=== PATIENT | female | born 1950 | race Caucasian/White ===

== ENCOUNTER → 2016-08-17 | Outpatient (CLI) | payer MEDICARE, OTHER ==
[~2016-08-17] MED LIST: ACTONEL35 MG PO; AMLO5TAB PO; CALCIUM 600-D1 TAB PO; FIBER CHOICE1 CTB PO; FOLIC ACID 1MG T1 MG PO; LIPITOR20 MG PO; METHOTREXATE 22.5 MG PO; MULTIVITAMIN1 TA1 PO; NORCO 325 MG-51 TAB PO; PHENERGAN 25MG.25 M1 PO; PROBIOTIC FORMU1 CA1 PO; VICODIN1 TAB PO
--- NOTE | 2016-08-17 12:24 | RADIOLOGY REPORT PS360 ---
BONE DENSITOMETRY(HIP:LT SPINE HISTORY: OSTEOPENIA ORDERING PHYSICIAN: Kuldip Adame MD PATIENT AGE: 66 years COMPARISON: None FINDINGS: The BMD measured at the right femoral neck is 0.866 g/cm squared with a T score of -1.2. This is considered Osteopenic according to the World Health Organization criteria. Fracture risk is Moderate. Treatment is advised. IMPRESSION: Osteopenia. Bone density is essentially unchanged compared to 08/15/2015 in the hips and has increased by 5.4% in the spine. Recommend follow-up exam July 2018
--- NOTE | 2016-08-20 13:33 | RADIOLOGY REPORT PS360 ---
DIG MAMM-SCREEN UNI-LT W/CAD CAD Screening COMPARISON: Digital left mammogram 08/01/2014 and 08/15/2015 INDICATION: There has been a there is a history of breast cancer in patient's mother diagnosed in her 80s. Previous right mastectomy. TECHNIQUE: Standard CC and MLO images were obtained. R2 CAD reviewed. FINDINGS: Moderate heterogenic densities are seen in the central portion of the breast basely unchanged from the previous exams. There are few benign-appearing calcifications noted. There is no suspicious lesion and no suspicious microcalcifications. IMPRESSION: Stable exam no suspicious lesion seen recommend yearly follow-up BI-RADS CATEGORY: 2_Benign RECOMMENDED FOLLOWUP: 12M 12 MONTH FOLLOW-UP (A letter has been sent to the patient regarding results of the study.)
== END ==
LOC: RAD 10:09
DX: Z12.31 Encounter for screening mammogram for malignant neoplasm of breast (principal); Z85.3 Personal history of malignant neoplasm of breast; M85.89 Other specified disorders of bone density and structure, multiple sites; Z13.820 Encounter for screening for osteoporosis
CPT/HCPCS: G0202-LT-52

== ENCOUNTER → 2016-11-20 | Outpatient (CLI) | payer MEDICARE, OTHER ==
--- NOTE | 2016-11-22 19:57 | RADIOLOGY REPORT PS360 ---
PROCEDURE: 2-D M-mode and color Doppler study INDICATIONS FOR THE TEST: Chest pain COPD Heart Murmur Tobacco Smoking Palpitations Fatigue+ Syncope Edema+ Hypertension+Diabetes Mellitus Rheumatic Fever SOB MIRZA+Obesity Hyperlipidemia Family History HD+ Additional History PATIENT INFORMATION HEIGHT: 65 WEIGHT:125 GENDER: Female B/P:142/81 2-D/M-MODE INTERPRETATION: 2-D MEASUREMENTS OBSERVED VALUES IN CMS Right Ventricular Dimension (RVDd) 1.2 Interventricular Septum (Thickness)(IVsd) 1.3 Left Ventricular Internal Dimensions(LVIDd) 3.8 Left Ventricular Posterior Wall (Thickness)(LVPWd) 0.8 Aortic Root 2.7 Aortic Cusp Separation 1.3 Left Atrial Dimensions (LAD) 2.9 2D 1. Left atrium is qualitatively moderately enlarged, left ventricle is normal size, there is mild concentric left ventricular hypertrophy present, visually estimated ejection fraction of 55% with no obvious regional wall motion abnormality. 2. The right atrium and right ventricle are normal size and contractility. 3. The aortic valve is minimally thickened and calcified, leaflet continue to display good mobility. 4. There are degenerative changes present in both anterior and posterior mitral leaflet, leaflets are not well visualized. 5. The tricuspid valve is grossly normal. 6. No significant pericardial effusion. DOPPLER INTERROGATION: Doppler interrogation of the aortic, mitral and tricuspid valvular presence of moderate to severe mitral regurgitation, and mild tricuspid regurgitation, tricuspid regurgitant jet velocity insufficient for calculation of the right ventricular systolic pressure, tissue Doppler is indicative of raised left atrial pressure. CONCLUSION: 1. Moderately enlarged left atrium, normal left ventricular size, mild concentric left ventricular hypertrophy, visually estimated ejection fraction of 55% with no obvious regional wall motion abnormality, Doppler evidence of raised left atrial pressure. 2. Abnormal mitral valve as described above, leaflet morphology is not well visualized, there is moderate to severe mitral regurgitation present, if clinically indicated transesophageal echocardiogram is recommended. 3. Mild tricuspid regurgitation. 4. No significant pericardial effusion noted.
== END ==
LOC: RT 13:37
DX: R06.09 Other forms of dyspnea (principal)

== ENCOUNTER 2016-12-09 06:56 | Day surgery (SDC) | payer MEDICARE, OTHER ==
[2016-12-09 07:38] LABS: LYMPH # 0.6 K/mm3 (0.7-4.5); LYMPH % 9.4 % (10-50.0)
[2016-12-09 07:44] LABS: BUN 13 mg/dL (7-18)
[2016-12-09 07:49] LABS: GFR (ESTIMATED) 50 ML/MIN (59-)
[2016-12-09 07:53] LABS: HEMOGLOBIN 13.6 g/dL (12.2-16.2)
--- NOTE | 2016-12-09 11:28 | RADIOLOGY REPORT PS360 ---
CARDIAC CATHETERIZATION DATE OF CATHETERIZATION:12/09/2016 9:51 AM PROCEDURES: 1. Right heart catheterization 2. Left heart catheterization 3. Left ventriculogram 4. Selective coronary angiogram INDICATION FOR TEST: 1. Severe mitral regurgitation 2. Severe pulmonary hypertension 3. Preoperative evaluation for mitral valve repair Informed consent was obtained prior to the procedure. COMPLICATIONS: None ESTIMATED BLOOD LOSS: Less than 10 ml. TECHNIQUE: One percent lidocaine was used to anesthetize the right groin. The right femoral artery was accessed via the Seldinger technique. A 4-[place]and[place] and 7 [place] sheath were placed in the artery vein respectively. A JL 4 JR4 catheter were used to perform left heart catheterization left ventriculogram and selective coronary angiogram while the [place]Evelyn catheter was used to perform right heart catheterization. At the end of the procedure the patient was transferred to the postop holding area in stable condition for sheath removal. ANGIOGRAPHIC RESULTS: 1. The left main artery normal 2. The left anterior descending artery normal 3. The circumflex artery normal 4. The right coronary artery dominant and normal 5. The SOLOMON ventriculogram reveals normal 65% 6. The left ventricular end-diastolic pressure 5 mmHg 7. Right atrial pressure 5 mmHg 8. Pulmonary artery pressure 28/14 mmHg 9. Pulmonary artery occlusion pressure 5 mmHg 10. Right atrial saturation 82% 11. Pulmonary artery saturation 83% IMPRESSION: 1. Normal coronary arteries. 2. Normal ejection fraction 3. Normal left ventricular end-diastolic pressure 4. Mild pulmonary hypertension PLAN: 1. MELISA should be performed to better evaluate the morphology of the mitral valve and the etiology for the mitral regurgitation 2. Patient should be evaluated for mitral valve repair pending the results of the MELISA
--- NOTE | 2016-12-09 11:28 | RADIOLOGY REPORT PS360 ---
CARDIAC CATHETERIZATION DATE OF CATHETERIZATION:12/09/2016 9:51 AM PROCEDURES: 1. Right heart catheterization 2. Left heart catheterization 3. Left ventriculogram 4. Selective coronary angiogram INDICATION FOR TEST: 1. Severe mitral regurgitation 2. Severe pulmonary hypertension 3. Preoperative evaluation for mitral valve repair Informed consent was obtained prior to the procedure. COMPLICATIONS: None ESTIMATED BLOOD LOSS: Less than 10 ml. TECHNIQUE: One percent lidocaine was used to anesthetize the right groin. The right femoral artery was accessed via the Seldinger technique. A 4-[place] Island[place] and 7 [place] Island[place] sheath were placed in the artery vein respectively. A JL 4 JR4 catheter were used to perform left heart catheterization left ventriculogram and selective coronary angiogram while the [place]-Evelyn catheter was used to perform right heart catheterization. At the end of the procedure the patient was transferred to the postop holding area in stable condition for sheath removal. ANGIOGRAPHIC RESULTS: 1. The left main artery normal 2. The left anterior descending artery normal 3. The circumflex artery normal 4. The right coronary artery dominant and normal 5. The SOLOMON ventriculogram reveals normal 65% 6. The left ventricular end-diastolic pressure 5 mmHg 7. Right atrial pressure 5 mmHg 8. Pulmonary artery pressure 28/14 mmHg 9. Pulmonary artery occlusion pressure 5 mmHg 10. Right atrial saturation 82% 11. Pulmonary artery saturation 83% IMPRESSION: 1. Normal coronary arteries. 2. Normal ejection fraction 3. Normal left ventricular end-diastolic pressure 4. Mild pulmonary hypertension PLAN: 1. MELISA should be performed to better evaluate the morphology of the mitral valve and the etiology for the mitral regurgitation 2. Patient should be evaluated for mitral valve repair pending the results of the MELISA
[2016-12-09 11:44] LABS: ARTERIAL O2 SAT CATH LAB 83 % (90-100); VENOUS O2 SAT CATH LAB 82 % (75-80)
[2016-12-09 14:08] VITALS: BP 139/86
== END 2016-12-09 14:09 | disposition home or self-care (01) ==
LOC: CATHLAB 06:56
PROVIDERS: Internal Medicine
PROC: B2111ZZ Fluoroscopy of Multiple Coronary Arteries using Low Osmolar Contrast (ICD-10-PCS; 2016-12-09)
PROC: B2151ZZ Fluoroscopy of Left Heart using Low Osmolar Contrast (ICD-10-PCS; 2016-12-09)
PROC: 4A023N8 Measurement of Cardiac Sampling and Pressure, Bilateral, Percutaneous Approach (ICD-10-PCS; principal; 2016-12-09 09:45)
DX: I34.0 Nonrheumatic mitral (valve) insufficiency (principal); I27.20 Pulmonary hypertension, unspecified; R06.09 Other forms of dyspnea
CPT/HCPCS: C1725; C1769; C1894; J1644; Q9967

== ENCOUNTER → 2016-12-11 | Day surgery (SDC) | payer MEDICARE, OTHER ==
--- NOTE | 2016-12-11 13:58 | RADIOLOGY REPORT PS360 ---
Procedure: Transesophageal echocardiogram Indication for procedure: Abnormal transthoracic echocardiogram suggestive of mitral valve disease, shortness of breath Procedure: Patient was brought into cardiac catheter lab holding area in hemodynamically stable condition, after the informed consent, local anesthesia was applied, subsequently patient was given moderate sedation by anesthesiologist, a transesophageal echocardiogram was performed without any difficulty. Patient tolerated the procedure well. Findings: 1. The left atrium is mildly enlarged, left atrial appendage is free of thrombus, there is good appendage flow by spectral Doppler. 2. The right atrium is mildly enlarged. 3. The intra-atrial septum is intact, there is no flow across the intra-atrial septum, agitated saline contrast study fails to identify right to left shunt. 4. The aortic valve is minimally thickened and fibrosed, there is no aortic stenosis aortic insufficiency. 5. The mitral valve leaflets are minimally thickened, there is no mitral valve prolapse, there is no mitral stenosis, there is mild mitral regurgitation. 6. The tricuspid valve is structurally normal, there is mild tricuspid regurgitation. 7. The pulmonic valve is structurally normal. 8. The right ventricle is mildly enlarged with normal contractility. 9. The left ventricle is normal size, there is overall preserved left ventricular systolic function, visually estimated ejection fraction 55% with no obvious regional wall motion abnormality. 10. No significant pericardial effusion noted 11. Ascending, arch and descending thoracic aorta is normal. Conclusion: 1. Normal left ventricular size, preserved left ventricular systolic function, visually estimated ejection fraction 55% with no obvious regional wall motion abnormality. 2. Mildly enlarged right atrium and right ventricle, contractility of the right ventricle is normal 3. Mild mitral and tricuspid regurgitation. 4. No significant pericardial effusion noted 5. Agitated saline contrast study fails to identify intracardiac shunt.
[2016-12-11 15:05] VITALS: BP 150/86
== END ==
LOC: CATHLAB 11:45
DX: I34.0 Nonrheumatic mitral (valve) insufficiency (principal); I07.1 Rheumatic tricuspid insufficiency; R06.02 Shortness of breath
CPT/HCPCS: G0463

== ENCOUNTER → 2016-12-18 | Outpatient (CLI) | payer MEDICARE, OTHER ==
--- NOTE | 2016-12-21 06:27 | RADIOLOGY REPORT PS360 ---
CT CHEST W/WO CONTRAST HISTORY: Pulmonary sarcoidosis PULM, SARCOIDOSIS ORDERING PHYSICIAN: Marshall Lewis MD PATIENT AGE: 66 years TECHNIQUE: Helical acquisition obtained without and with intravenous administration of 75 mL of Isovue 370 .. Axial, sagittal, and coronal reformatted images are generated and reviewed. High-resolution images also obtained COMPARISON: None FINDINGS: No mediastinal or hilar mass or adenopathy is evident. There is a small hiatal hernia. There are few scattered small mediastinal and hilar lymph nodes. No aortic aneurysm or dissection. No central pulmonary embolus. There is some mild prominence of the pulmonary arteries with the pulmonary artery aorta ratio slightly greater than 1. There is bilateral hilar retraction superiorly There is diffuse scattered pulmonary pleural parenchymal fibrotic changes with scattered areas of consolidation. There is a irregularity cavitation in the left upper lobe best demonstrated on the high-resolution images. This area measures 3 x 2 cm with some peripheral nodular calcification. No effusions. There are scattered parenchymal nodular opacities measuring up to 18 mm in the left lower lobe and 12 mm in the right lower lobe laterally. Right breast prosthesis is present. Surgical clips are present in the right axilla Upper abdominal images are unremarkable. IMPRESSION: 1. Scattered areas of pulmonary fibrosis with superior bilateral hilar retraction and bilateral calcified nodes in mediastinal nodes consistent with stage IV sarcoidosis with fibrosis 2. 3 cm area of cavitation in the left upper lobe etiology indeterminate. No air-fluid level evident. Since there are no old studies available for comparison, would recommend 3 month follow-up. If old studies are made available an addendum may be added. 3. Mild prominence of pulmonary arteries suggesting pulmonary arterial hypertension 4. Scattered bilateral pulmonary parenchymal opacities probably related to fibrosis. Follow-up suggested to confirm stability
== END ==
LOC: RAD 13:54
DX: D86.0 Sarcoidosis of lung (principal); R91.8 Other nonspecific abnormal finding of lung field
CPT/HCPCS: Q9967